=== PATIENT | female | born 1985 | race Caucasian/White ===

== ENCOUNTER 2018-11-16 13:46 | Inpatient (IN) | payer BC ==
[~2018-11-16] VITALS: Ht 162.6 cm; Wt 70.5 kg
[2018-11-16] VITALS (20 sets, daily range): BP systolic 101–156; BP diastolic 55–67; PULSE 63–99; TEMP 97.4–97.5
[~2018-11-16 13:46] MED LIST: CEPHALEXIN500 M1 PO; MOTRIN 600600 MG/TAB PO; MOTRIN 800800 MG/TAB PO; PERCOCET 325 MG1 TA2 PO; PRENATAL1 TA1 PO; PROBIOTIC ACID1 EAC3 PO; TYLENOL COLD PO
--- NOTE | 2018-11-16 13:50 | NUR ---
Patient presents to unit for complaints of contractions. Patient on placed on monitors and SVE completed by Elif Toribio RN and noted . Patient admitted to labor and delivery per . Patient requests epidural. Iv started in left wrist, IV fluids infusing with labs obtained.
--- NOTE | 2018-11-16 14:15 | NUR ---
Patient admitted and request epidural. Steven Valdez CRNA notified of patient request. Will continue to monitor.
--- NOTE | 2018-11-16 14:30 | NUR ---
1415- Patient up to edge of bed for placement of epdiural. Patient tolerated well. Intermittent tracing of FHT's with patient postion, nurse at bedside. Will continue to monitor.
[2018-11-16 14:47] LABS: BASO % 0.4 % (0.0-2.0); EOS # 0.3 (0.0-0.7); EOS % 2.3 % (0-4.0); GRAN # 7.4 (1.4-6.5); GRAN % 67.5 % (42.2-75.2); HEMOGLOBIN 11.4 g/dl (12.5-16.0); LYMPH # 2.7 (1.2-3.4); LYMPH % 24.3 % (20.0-51.0); MEAN CELL VOLUME 77 fl (80.0-100.0); MEAN CORPUSCULAR HEMOGLOBIN 25 pg (27.0-31.0); MEAN CORPUSCULAR HGB CONC 32 g/dl (33.0-37.0); MEAN PLATELET VOLUME 10.5 fl (7.4-10.4); MONO # 0.5 (0.1-0.6); MONO % 4.8 % (1.7-9.3); PLATELET COUNT 294 K/mm3 (130-400); RED BLOOD COUNT 4.64 M/mm3 (4.10-5.30); REDCELL DISTRIBUTION WIDTH-CV 15.9 % (11.5-14.5)
[2018-11-16 14:50] LABS: HEMATOCRIT 35.6 % (37.0-47.0)
--- NOTE | 2018-11-16 15:00 | NUR ---
1447- Nurse at patient bedside, Patient reporting begining to feel light headed. Nurse obtains blood pressure and noted decreased, Nurse request assitance and for ephederine. Patient turned left lateral. 1550- x1 dose of ephederine given. Fluid bolus with oxygen provided. Nursing staff at patient bedside. 1555- x1 dose ephederine given. Patient beginning to feel better. Nurse remains at patient bedside. Fluid bolus continues. Nurse remains at patiet bedside for close observation.
--- NOTE | 2018-11-16 17:00 | NUR ---
MALIK completed patient noted complete. notified, [facility] notified, patient prepped for delivery. Will continue to monitor.
--- NOTE | 2018-11-16 17:23 | NUR ---
1715- Dr. Stephens in room for delivery, patient set up for delivery, nursery RN notified. 1717- Arom with clear fluid noted. Patient begins to push with contractions 1723- Delivery of viable male infant, cord clamped and cut by Dr. Stephens to mothers abdomen for drying and stimulation. to care of nursery RN. 1725- Delivery of placenta, pitocin started per protocol. Patient tolerated well. Fundal massage performed as indicated. Will continue to monitor.
--- NOTE | 2018-11-16 20:00 | NUR ---
Pt able to lift and hold each leg off of bed for 5 seconds. Pt repositioned to sitting on edge of bed. Epidural catheter removed, tip blue, smooth, and intact. Pt tolerated procedure well. Pt able to ambulate to bathroom with standby assistance. Pt able to void 100 mL. Pericare explained and provided. New clean gown on. Mesh panties and peripad applied. Pt then ambulated to room 214 with standby assistance with belongings.
[2018-11-17 01:30] VITALS: BP 95/55; PULSE 80; TEMP 98.6
[2018-11-17 05:00] VITALS: BP 91/53; PULSE 81; TEMP 98.6
[2018-11-17] MEDS ORDERED: MOTRIN 600600 MG/TAB PO (05:18)
[2018-11-17 08:09] VITALS: BP 111/77; PULSE 79; TEMP 98
[2018-11-17 10:38] VITALS: BP 115/76; PULSE 68
[2018-11-17 16:55] VITALS: BP 108/67; PULSE 67; TEMP 97.6
--- NOTE | 2018-11-17 19:00 | NUR ---
Discharge instructions reviewed with pt and at the bedside. Both agreed with the plan, verbalized an understanding and state no questions or concerns.
--- NOTE | 2018-11-17 19:55 | NUR ---
Pt discharged home.
== END 2018-11-17 19:55 | disposition home or self-care (01) | DRG 807 ==
LOC: LDRO 13:46 → LDR 14:00 → OB 20:10
PROVIDERS: Obstetrics & Gynecology; ADMIT Obstetrics & Gynecology
PROC: 10E0XZZ Delivery of Products of Conception, External Approach (ICD-10-PCS; principal; 2018-11-16)
DX: O80 Encounter for full-term uncomplicated delivery (principal); Z37.0 Single live birth; Z3A.39 39 weeks gestation of pregnancy
CPT/HCPCS: J2590; J2795; J7120